=== PATIENT | male | born 1990 | race African-American/Black ===

== ENCOUNTER 2020-05-01 23:38 | Emergency (ER) | payer OTHER, SELFPAY ==
[2020-05-01 23:42] VITALS: BP 127/73; PULSE 63; RESP 18; TEMP 35.3; O2SAT 100
--- NOTE | 2020-05-01 23:53 | ED.MALEGU ---
HPI - Male Genitourinary General Chief complaint: Urogenital-Male Stated complaint: burning - std Time Seen by Provider: 05/01/20 23:52 Source: patient Mode of arrival: ambulatory Limitations: no limitations History of Present Illness HPI Narrative: Pt c/o burning upon urination and penile discharge, clear, started 2 days ago. Denies any abdominal pain, pelvic pain, nausea, vomiting, diarrhea, fever or chills. Patient states that he had a similar episode years ago when he was diagnosed with gonorrhea and chlamydia Related Data Allergies Allergy/AdvReac Type Severity Reaction Status Date / Time No Known Allergies Allergy Verified 05/01/20 23:44 Review of Systems Review of Systems: All systems reviewed & are unremarkable except as noted in HPI and below Constitutional: Constitutional: Denies body ache(s), Denies chills, Denies excessive sweating, Denies fatigue, Denies fever(s), Denies headache(s), Denies lethargy, Denies malaise, Denies weakness and Denies weight loss Eyes: Eyes: Denies blurry vision, Denies change in vision and Denies loss of vision ENT: Denies dizziness, Denies ear discharge, Denies headache(s), Denies lip swelling, Denies epistaxis, Denies nasal congestion, Denies neck pain, Denies throat swelling and Denies tongue swelling Cardiovascular: Cardiovascular: Denies chest pain, Denies chest pain at rest, Denies chest pain with activity, Denies diaphoresis, Denies rapid heart rate, Denies edema, Denies irregular heart rhythm, Denies lightheadedness, Denies palpitations, Denies dyspnea and Denies dyspnea on exertion Respiratory: Respiratory: Denies chest congestion, Denies cough, Denies hemoptysis, Denies dyspnea and Denies dyspnea on exertion Gastrointestinal: Gastrointestinal: Denies abdominal pain, Denies melena, Denies hematochezia, Denies diarrhea, Denies nausea, Denies vomiting and Denies hematemesis Musculoskeletal: Musculoskeletal: Denies abnormal gait, Denies deformity, Denies joint swelling, Denies limited range of motion, Denies neck pain and Denies numbness Neurologic: Denies Abnormal speech present, Denies abnormal gait, Denies confusion, Denies dizziness, Denies headache(s), Denies focal weakness, Denies loss of vision, Denies numbness, Denies Other visual disturbances, Denies Sensory deficit (Neuro) and Denies weakness Psychiatric: Psychiatric: Denies confusion, Denies depression, Denies auditory hallucinations, Denies homicidal ideation and Denies suicidal ideation Endocrine: Endocrine: Denies cold intolerance, Denies excessive sweating, Denies fatigue, Denies heat intolerance and Denies palpitations Hematologic/Lymphatic: Hematologic/Lymphatic: Denies easy bleeding and Denies easy bruising Allergic/Immunologic: Allergic/Immunologic: Denies lip swelling, Denies throat swelling and Denies tongue swelling PMFSH Social History Social History Gender identity (if verbalized by the patient): Male Sexual Orientation (if Verbalized by the Patient): Straight or Heterosexual Exam Const: General: cooperative, healthy appearing, comfortable, no acute distress, well developed, alert and awake; No confusion Orientation/consciousness: oriented to person, oriented to place, oriented to time, patient oriented x3 and No confusion Limitations: no limitations HENMT: Head: normal to inspection, normocephalic and atraumatic Ears: hearing grossly normal bilaterally General nose exam: Normal external nose present, Normal nares present and No nasal discharge present Face and sinus: normal facial exam Mouth: Yes Normal oral and palatal mucosa present and Yes lip normal Eyes: General: appearance normal, both eyes and all related structures Pupils: Equal, round and reactive pupils present EOM: EOMs intact bilaterally Neck: Neck: normal visual inspection, full ROM, no lymphadenopathy and no meningeal signs Chest: Chest palpation & inspection: normal inspection of the chest Resp: Effort & Inspection: normal re
[2020-05-02] MEDS: cefTRIAXone 1 GM VIAL 0.5 GM IM (00:50)
[2020-05-02] MEDS: LIDOCAINE HCL 1% LOCAL INJ 20 ML VIAL (00:50)
[2020-05-02 00:55] VITALS: BP 122/70; PULSE 69; RESP 18; O2SAT 99
== END 2020-05-02 01:07 | disposition home or self-care (01) ==
LOC: ANHED 05-02 00:09
PROVIDERS: Emergency Provider Emergency Medicine
DX: N34.2 Other urethritis (principal); Z20.2 Contact with and (suspected) exposure to infections with a predominantly sexual mode of transmission
CPT/HCPCS: 96372; 99283; J0696

== ENCOUNTER 2020-09-29 18:26 | Emergency (ER) | payer OTHER, SELFPAY ==
[2020-09-29 18:34] VITALS: BP 134/74; PULSE 72; RESP 16; TEMP 37.1; O2SAT 99
--- NOTE | 2020-09-29 18:34 | ED.MALEGU ---
HPI - Male Genitourinary General Chief complaint: Urogenital-Male Stated complaint: groin pains Time Seen by Provider: 09/29/20 18:34 Source: patient and RN notes reviewed Mode of arrival: ambulatory Limitations: no limitations History of Present Illness HPI Narrative: 30-year-old male presents to the [facility] with complaints of 3 bumps on the shaft of his penis by the tip. States has been there a couple of days. Denies any new creams or ointments lotions detergents condoms. Denies any penile discharge. No urinary symptoms, no burning, no urgency or no frequency. Related Data Allergies Allergy/AdvReac Type Severity Reaction Status Date / Time No Known Allergies Allergy Verified 09/29/20 18:45 Review of Systems Constitutional: Constitutional: Reports no additional constitutional complaints Cardiovascular: Cardiovascular: Reports no additional cardiovascular complaints Respiratory: Respiratory: Reports no additional respiratory complaints Genitourinary: Genitourinary: Reports as per HPI, Denies dysuria, Denies flank pain, Denies painful ejaculations, Denies penile discharge, Denies scrotal swelling, Denies testicular pain, Denies urinary frequency, Denies urinary hesitancy, Denies urinary incontinence and Denies urinary urgency Musculoskeletal: Musculoskeletal: Reports no additional musculoskeletal complaints Integumentary/Breasts: Comments: 3 small bumps to shaft of penis Neurologic: Reports system reviewed and no additional complaints, except as documented Psychiatric: Psychiatric: Reports no additional psychiatric complaints PMFSH Social History Social History Gender identity (if verbalized by the patient): Male Comments At the time of my signature, I reviewed and agree with the nursing past medical, surgical, social, and family history. There is no relevant family history pertinent to the patient complaint. Exam Const: General: cooperative, healthy appearing, comfortable, no acute distress, well developed and alert Nutritional Appearance: well nourished and overweight Orientation/consciousness: patient oriented x3 Limitations: no limitations HENMT: Head: normal to inspection Eyes: General: appearance normal, both eyes and all related structures Neck: Neck: normal visual inspection, full ROM, no lymphadenopathy and trachea midline Chest: Chest palpation & inspection: normal inspection of the chest Resp: Effort & Inspection: normal respiratory effort and able to speak in complete sentences Auscultation: clear to auscultation bilaterally Cardio: Rate: regular rate Rhythm: regular rhythm GI: Inspection: normal to inspection GI Palp: No abdominal tenderness and Yes Soft to palpation Rectal Exam: deferred : Male General Exam: Yes normal external exam, No erythema, No hernia and No inguinal lymphadenopathy Penis: Yes circumcised and Yes Genital lesions present (3 small bumps noted to the left distal aspect.) Scrotum: scrotum normal, no ecchymosis, not edematous and not erythematous Testes: Testes normal Other: Chaperoned by Tonia BURNETT Male genitals images: 1. 3 small raised bumps, not vesicular Back/Spine/Pelvis: Back: no CVA tenderness Skin: General skin exam: normal color and no rashes or lesions noted Neuro: General: patient oriented x3 Psych: Appearance: grossly normal and well kempt Mental Status: mental status grossly normal Speech and movement: Normal speech and movement present and Clear speech present Affect: normal affect Attitude: cooperative Thought process: Normal thought process present Thought content: Yes Normal thought content present Course Course Emergency Course: Discharge instructions reviewed with patient, as well as provided in writing per nursing staff. The instructions also include specific and strict return/GO TO THE ER as well as f/u information. All questions have been answered, and the patient deny
[2020-10-11 15:38] LABS: Herpes Simplex Type 1 DNA PCR Not Detected
[2020-10-11 15:40] LABS: Herpes Simplex Type 2 DNA PCR Detected
== END 2020-09-29 18:54 | disposition home or self-care (01) ==
PROVIDERS: Emergency Provider Nurse Practitioner; PCP Family Medicine
DX: N48.9 Disorder of penis, unspecified (principal)
CPT/HCPCS: 36415; 87255; 87529; 99213; G0463

== ENCOUNTER 2020-10-02 14:50 | Emergency (ER) | payer OTHER, SELFPAY ==
--- NOTE | ~2020-10-02 | US_ITS ---
EXAMINATION: US scrotum doppler DATE: 10/02/2020 17:15 INDICATION: Right scrotal pain. TECHNIQUE: Grayscale and Doppler ultrasound images of the testes were obtained. COMPARISON: Ultrasound 06/16/2009 FINDINGS: The right testis measures 4.2 x 2.0 x 2.3 cm. The left testis measures 3.9 x 1.9 x 2.5 cm. There is normal vascular flow to both testes. The right epididymis is normal with normal vascular ayan w. The left epididymis is normal with normal vascular flow. There is no varicocele or hydrocele. IMPRESSION: 1. Normal testes. Reviewed, dictated and finalized at location A. IMPRESSION: 1. Normal testes.
[2020-10-02 14:56] VITALS: BP 135/70; PULSE 55; RESP 16; TEMP 36.4; O2SAT 100
[2020-10-02 16:04] LABS: Basophils Percent Auto 0.5 % (0.2-1.2); Eosinophils Absolute Auto 0.1 K/mm3 (0-0.3); Eosinophils Percent Auto 1.8 % (0-4.4); Hemoglobin 17.2 g/dL (14.0-18.0); Immature Granulocyte Absolute 0.02 K/mm3 (0.00-0.031); Immature Granulocyte Percent A 0.3 % (0-0.5); Lymphocytes Absolute Auto 1.79 K/mm3 (0.9-3.2); Lymphocytes Percent Auto 29.4 % (18.3-44.2); Mean Corpuscular HGB Conc 33.1 g/dl (32-36); Mean Corpuscular Hemoglobin 29.7 pg (26-34); Mean Corpuscular Volume 89.8 fl (80-100); Monocytes Absolute Auto 0.4 K/mm3 (0.1-0.6); Monocytes Percent Auto 7.2 % (2.6-8.5); Neutrophils Absolute Auto 3.7 K/mm3 (1.3-6.7); Neutrophils Percent Auto 60.8 % (45.5-73.1); Platelet Count Result 331 k/mm3 (150-375); Red Blood Count 5.79 M/mm3 (4.6-6.20); Red Cell Distribution Width 13.6 % (11.5-14.5); White Blood Count 6.1 K/mm3 (4.5-10.0)
[2020-10-02 16:15] LABS: Anion Gap 11 mmol/L (8-16); Blood Urea Nitrogen 15 mg/dL (9-20); Calcium 9.7 mg/dL (8.4-10.2); Carbon Dioxide 30 mmol/L (22-30); Chloride 101 mmol/L (98-107); Estimated CRCL calculation 131 ml/min; Estimated Glomerular Filt Rate > 60; Glucose 95 mg/dL (75-110); Potassium 3.9 mmol/L (3.4-5.0); Sodium 142 mmol/L (137-145)
[2020-10-02 17:35] LABS: Add Urine Microscopic? YES; Appearance Urine Clear (Clear); Bacteria Urine Trace /hpf; Bilirubin Urine Negative (Negative); Blood Urine Negative (Negative); Color Urine Yellow (Yellow); Glucose Urine UA Negative (Negative); Ketones Urine Negative (Negative); Leukocyte Esterase Ur Negative LEU/UL (Negative); Mucus Urine Rare /lpf; Nitrate Urine Negative (Negative); Protein Urine Negative (Negative); RBC Urine 0-2 /hpf (0-2); Specific Grav Ur 1.028 (1.001-1.035); Squamous Epithelial Cell Urine Rare /hpf (Few); WBC Urine 0-3 /hpf
[2020-10-02] MEDS: cefTRIAXone 1 GM VIAL 0.5 GM IM (17:43)
[2020-10-02 17:46] VITALS: BP 142/84; PULSE 68; RESP 14; O2SAT 99
--- NOTE | 2020-10-02 17:51 | ED.GENADULT ---
HPI - General Adult General Chief complaint: Urogenital-Male Stated complaint: R Flank Pain,R Testicle Pain Time Seen by Provider: 10/02/20 17:05 Source: patient and RN notes reviewed Mode of arrival: ambulatory Limitations: no limitations History of Present Illness HPI narrative: Patient is a 30-year-old male who presents with mild discomfort of the right groin and testicle and some intermittent right lower back pain patient has long would like to be tested and treated for STDs. Patient denies similar occurrence in the past. Patient notes he had had two small spots on his penis which have healed. Denies dysuria hematuria swelling or other concerns has not taken anything for his symptoms Related Data Allergies Allergy/AdvReac Type Severity Reaction Status Date / Time No Known Allergies Allergy Verified 09/29/20 18:45 Review of Systems Review of Systems: All systems reviewed & are unremarkable except as noted in HPI and below PMFSH Social History Social History (Updated 10/02/20 @ 17:54 by Damian Tavera PA-C) Smoking status: Never smoker Gender identity (if verbalized by the patient): Male Exam Narrative: Exam Narrative: GENERAL: Well-appearing, well-nourished, and in no acute distress. HEAD: Normocephalic, atraumatic. EYES: PERRLA and EOMI. ENT: Nares clear, no rhinorrhea or epistaxis. Mucous membranes moist. CHEST: Clear to auscultation. No respiratory distress. No wheezes rales or rhonchi HEART: Regular rate and rhythm. No murmur heard. Normal peripheral pulses. ABDOMEN: Soft, nontender, nondistended MALE GENITOURINARY: Normal genitalia SKIN: Warm, dry, no rash. NEURO: No focal deficits. Alert and oriented x3. PSYCH: Normal mood and affect. Course Course Emergency Course: Patient in the room no distress will be tested and was given Rocephin in the ER will follow with primary care and has been given urology follow-up agreeing to follow-up as instructed ABCs and vital signs intact and stable Vital Signs Vital signs: Vital Signs Temperature 97.6 F 10/02/20 14:56 Pulse Rate 55 L 10/02/20 14:56 Respiratory Rate 16 10/02/20 14:56 Blood Pressure 135/70 10/02/20 14:56 Pulse Oximetry 100 10/02/20 14:56 Temperature 97.6 F 10/02/20 14:56 Pulse Rate 68 10/02/20 17:46 Respiratory Rate 14 10/02/20 17:46 Blood Pressure 142/84 H 10/02/20 17:46 Pulse Oximetry 99 10/02/20 17:46 Medical Decision Making MDM Narrative Medical decision making narrative: Patient was evaluated for testicular pain unremarkable ultrasound no high risk changes in the evaluation will be referred back to primary care has been tested and treated as requested and agrees to follow-up as instructed Vital Signs Vital Signs: Vital Signs Temperature 97.6 F 10/02/20 14:56 Pulse Rate 55 L 10/02/20 14:56 Respiratory Rate 16 10/02/20 14:56 Blood Pressure 135/70 10/02/20 14:56 Pulse Oximetry 100 10/02/20 14:56 Temperature 97.6 F 10/02/20 14:56 Pulse Rate 68 10/02/20 17:46 Respiratory Rate 14 10/02/20 17:46 Blood Pressure 142/84 H 10/02/20 17:46 Pulse Oximetry 99 10/02/20 17:46 Lab Data Result diagrams: 10/02/20 15:52 10/02/20 15:52 Labs: Lab Results 10/02/20 10/02/20 10/02/20 Range/Units 15:52 15:52 17:23 WBC 6.1 (4.5-10.0) K/mm3 RBC 5.79 (4.6-6.20) M/mm3 Hgb 17.2 (14.0-18.0) g/dL Hct 52.0 (42.0-52.0) % MCV 89.8 (80-100) fl MCH 29.7 (26-34) pg MCHC 33.1 (32-36) g/dl RDW 13.6 (11.5-14.5) % Plt Count 331 (150-375) k/mm3 MPV 9.0 (7.4-10.4) fl Immature Gran % (Auto) 0.3 (0-0.5) % Neut % (Auto) 60.8 (45.5-73.1) % Lymph % (Auto) 29.4 (18.3-44.2) % Fountain % (Auto) 7.2 (2.6-8.5) % Eos % (Auto) 1.8 (0-4.4) % Baso % (Auto) 0.5 (0.2-1.2) % Lymph # (Auto) 1.79 (0.9-3.2) K/mm3 Fountain # (Auto) 0.4 (0.1-0.6) K/mm3 Eos # (Auto) 0.1 (0-0.3) K/mm3 Baso # (Aut
--- NOTE | 2020-10-02 17:52 | PC.NURSE ---
Lidocaine used to mixed rocephin
== END 2020-10-02 18:04 | disposition home or self-care (01) ==
PROVIDERS: Emergency Medicine Emergency Medical Services; Emergency Provider Emergency Medicine; PCP Family Medicine
DX: N50.811 Right testicular pain (principal)
CPT/HCPCS: 36415; 76870; 80048; 81001; 85025; 87491; 87591; 93976; 96372; 99284; J0696

== ENCOUNTER 2021-09-05 13:40 | Emergency (ER) | payer OTHER, SELFPAY ==
--- NOTE | 2021-09-05 13:46 | ED.CHESTPAIN ---
HPI - Chest Pain General Chief Complaint: Unspecified Stated Complaint: cp Time Seen by Provider: 09/05/21 13:46 Source: patient Mode of arrival: ambulatory Limitations: no limitations History of Present Illness HPI narrative: Mr. Tavera is a 31-year-old male patient presenting to the clinic today with complaints of midsternal chest pain with sour taste that gets worse after eating. He reports that he feels as though he has acid reflux but also suffers from some chest tightness and difficulty getting air in and out. He denies any radiation of the pain. Reports the pain about a 2 or 3 out of 10 right now. Pain gets worse after eating. Symptoms have been ongoing for approximately 1 to 1.5 months. He has tried dieting without relief. Related Data Allergies Allergy/AdvReac Type Severity Reaction Status Date / Time No Known Allergies Allergy Verified 09/29/20 18:45 Review of Systems Review of Systems: Pertinent positives per HPI. Patient denies any fever, chills, rash, headache, visual changes, dizziness, cough, runny nose, sore throat, shortness of breath, chest pain, palpitations, nausea, vomiting, diarrhea, constipation, abdominal pain, or any urinary issues. [facility] Social History Social History Smoking status: Never smoker Gender identity (if verbalized by the patient): Male Sexual Orientation (if Verbalized by the Patient): Straight or Heterosexual Comments At the time of my signature, I reviewed and agree with the nursing past medical, surgical, social, and family history. There is no relevant family history pertinent to the patient complaint. Exam Narrative: General: Well-developed, obese, in no apparent distress Head: Normocephalic, atraumatic. Chest: Normal appearance, nontender to palpation, even rise and fall with respirations. Cardio: Regular rate and rhythm, s1 and s2 normal, no S3-S4, no murmur appreciated. Resp: Clear to auscultation bilaterally, no rhonchi, rales, wheezing or rubs. Extremities: No deformity, no edema, no cyanosis, capillary refill less than 2 seconds, peripheral pulses palpable and strong. Integumentary: New Site, warm, and dry, intact without lesion, no rashes. Course Course Emergency Course: Portions of this record may have been created with voice recognition software. Level of Care: Express Care Visit Vital Signs Vital signs: Vital signs reviewed MDM - Chest Pain MDM Narrative Medical decision making narrative: At the time of visit patient is resting comfortably on the exam table. Reports that he is having chest tightness, acid reflux, and sour taste in his mouth that gets worse after eating. This has been ongoing for 1 to 1.5 months. EKG shows sinus bradycardia with out ectopy. He denies any shortness of breath or radiation of pain. GI cocktail was given in the clinic and this relieved his pain. I suspect the patient has GERD and a prescription for Pepcid was sent to his pharmacy. He is to follow-up with a PCP for further evaluation as discussed and he voiced understanding. He agrees to discharge instructions and treatment plan. Differential Diagnosis Differential diagnosis: Likely pneumothorax, atypical chest pain, st elevation myocardial infarction, costochondritis, chest pain, biliary colic and other (GERD) ECG Data EKG #1: Attestation: I personally reviewed and interpreted this ECG as follows: ECG completion date: 09/05/21 ECG completion time: 13:58 Prior ECG tracings: not available for review Interpretation: EKG shows sinus bradycardia with a heart rate of 58 bpm without ectopy, NM interval is 170 ms, QRS duration 98 ms, QT/QTc 401/398 ms P?R?T axis is 16/-4/1, QTc be 395 ms, and QTC F is 397 ms Discharge Plan Discharge Clinical Impression: Gastroesophageal reflux disease Qualifiers: Esophagitis presence: esophagitis presence not specified Qualified Code(s): K21.9 - Gastro-esophage
[2021-09-05 13:47] VITALS: BP 134/77; PULSE 68; RESP 16; TEMP 37.4; O2SAT 98
[2021-09-05 13:53] VITALS: BP 134/77; PULSE 68; RESP 16; TEMP 37.4; O2SAT 98
--- NOTE | 2021-09-05 13:58 | ECG_ITS ---
Measurements Intervals Gilliam Rate: 58 P: 16 VT: 170 QRS: -4 QRSD: 98 T: 1 QT: 401 QTc: 395 Interpretive Statements SINUS BRADYCARDIA VOLTAGE CRITERIA FOR LVH MINIMAL Q WAVES- HIGH LATERAL LEADS BORDERLINE T WAVE ABNORMALITY- INFERIOR LEADS BORDERLINE ECG Electronically Signed On 09-05-2021 20:24:50 CDT by Huan Morillo D.O.
[2021-09-05] MEDS: LIDOCAINE HCL 2% VISC SOLN 15 ML UDC PO (14:03)
[2021-09-05] MEDS: MAG HYDROX/AL HYDROX/SIMETH 30 ML UDC PO (14:03)
== END 2021-09-05 14:20 | disposition home or self-care (01) ==
PROVIDERS: Emergency Provider Nurse Practitioner Family
DX: K21.9 Gastro-esophageal reflux disease without esophagitis (principal)
CPT/HCPCS: 93005; 99213; A9270; G0463

== ENCOUNTER 2021-11-07 00:58 | Emergency (ER) | payer OTHER, SELFPAY ==
[2021-11-07 01:02] VITALS: BP 136/79; PULSE 91; RESP 18; TEMP 37; O2SAT 99
[2021-11-07 03:51] VITALS: BP 161/88; PULSE 95; RESP 18; TEMP 37.2; O2SAT 99
[2021-11-07 03:54] VITALS: O2SAT 99
[2021-11-07] MEDS: LIDOCAINE HCL 2% VISC SOLN 15 ML UDC PO (04:44)
[2021-11-07] MEDS: SODIUM CHLORIDE 0.9% IV 1,000 ML 999 ML IV CONT (05:12)
--- NOTE | 2021-11-07 05:36 | ED.GENADULT ---
HPI - General Adult General Chief complaint: Upper Respiratory Infection Stated complaint: lightheaded, dizzy, throat hurting Time Seen by Provider: 11/07/21 03:31 History of Present Illness HPI narrative: Patient is a 31-year-old male who presents ER with sore throat. Ongoing for 3 days. Associate with sinus congestion and postnasal drip. No cough. Has a hoarse voice. He has taken home COVID test without a positive result. No difficulty breathing or swallowing. Reports he has been having chills and fatigue and been feeling warm but has no documented fevers. No known sick contacts. Patient does endorse lightheadedness with sitting to standing. Related Data Allergies Allergy/AdvReac Type Severity Reaction Status Date / Time No Known Allergies Allergy Verified 09/29/20 18:45 Review of Systems Review of Systems: All systems reviewed & are unremarkable except as noted in HPI and below Constitutional: Constitutional: Reports chills and Reports fatigue ENT: Denies dysphagia, Reports nasal congestion and Reports sore throat Cardiovascular: Cardiovascular: Denies chest pain, Denies rapid heart rate and Denies radiating jaw, neck or arm pain Respiratory: Respiratory: Denies cough and Denies dyspnea Gastrointestinal: Gastrointestinal: Denies abdominal pain, Denies nausea and Denies vomiting Musculoskeletal: Musculoskeletal: Reports myalgias, Denies arthralgias and Denies joint swelling PMFSH Past Medical History Medical History (Updated 11/07/21 @ 06:55 by Dameon Whitaker MD) Healthy adult male Surgical History Surgical History (Updated 11/07/21 @ 05:38 by Dameon Whitaker MD) No history of previous surgery Social History Social History Smoking status: Never smoker Gender identity (if verbalized by the patient): Male Sexual Orientation (if Verbalized by the Patient): Straight or Heterosexual Exam Narrative: GENERAL: Well-appearing, well-nourished, and in no acute distress. HEAD: Normocephalic, atraumatic. EYES: PERRLA and EOMI. ENT: Mucous membranes moist. Posterior oropharynx erythematous including tonsils and uvula. Uvula midline and nonedematous. Tonsils without exudate and not abutting the uvula. No trismus. Tolerating oral secretions without issue. NECK: Supple. CHEST: Clear to auscultation. No respiratory distress. HEART: Regular rate and rhythm. Normal peripheral pulses. EXTREMITIES: Normal range of motion. No edema. SKIN: Warm, dry, no rash. NEURO: Alert and oriented x3. PSYCH: Normal mood and affect. Course Course Emergency Course: Monotest and COVID-negative. Will treat for strep given sore throat and enlarged tonsils with erythema. The rapid strep cannot be formed and is being sent for culture due to a shortage of testing reagent. Vital Signs Vital signs: Vital Signs Temperature 98.6 F 11/07/21 01:02 Pulse Rate 91 11/07/21 01:02 Respiratory Rate 18 11/07/21 01:02 Blood Pressure 136/79 11/07/21 01:02 Pulse Oximetry 99 11/07/21 01:02 Oxygen Delivery Room Air 11/07/21 01:02 Temperature 98.9 F 11/07/21 03:51 Pulse Rate 95 11/07/21 03:51 Respiratory Rate 18 11/07/21 03:51 Blood Pressure 161/88 H 11/07/21 03:51 Pulse Oximetry 99 11/07/21 03:54 Oxygen Delivery Room Air 11/07/21 03:54 Medical Decision Making Vital Signs Vital Signs: Vital Signs Temperature 98.6 F 11/07/21 01:02 Pulse Rate 91 11/07/21 01:02 Respiratory Rate 18 11/07/21 01:02 Blood Pressure 136/79 11/07/21 01:02 Pulse Oximetry 99 11/07/21 01:02 Oxygen Delivery Room Air 11/07/21 01:02 Temperature 98.9 F 11/07/21 03:51 Pulse Rate 95 11/07/21 03:51 Respiratory Rate 18 11/07/21 03:51 Blood Pressure 161/88 H 11/07/21 03:51 Pulse Oximetry 99 11/07/21 03:54 Oxygen Delivery Room Air 11/07/21 03:54 Lab Data Labs: Lab Results 11/07/21 11/07/21 Range/Uni
[2021-11-07 05:47] LABS: Monoscreen Negative (Negative); Negative Monotest Control Negative (Negative); Positive Monotest Control Positive (Positive)
[2021-11-07 06:49] LABS: SARS-CoV-2 RNA PCR Negative
--- NOTE | 2021-11-07 06:53 | PC.NURSE ---
This patient is mad because test results take so long to come back. Patient states I just want to go home and figure out my results later.
[2021-11-07 07:09] VITALS: BP 120/82; PULSE 82; RESP 18; O2SAT 98
== END 2021-11-07 07:12 | disposition home or self-care (01) ==
PROVIDERS: Emergency Provider Emergency Medicine
DX: J03.90 Acute tonsillitis, unspecified (principal); Z20.822 Contact with and (suspected) exposure to COVID-19
CPT/HCPCS: 36415; 86308; 87081; 87147; 87880; 96360; 99283; C9803; J7030; U0003; U0005

== ENCOUNTER 2022-12-05 17:36 | Emergency (ER) | payer OTHER, SELFPAY ==
[2022-12-05 17:50] VITALS: BP 99/87; PULSE 68; RESP 16; TEMP 36.8; O2SAT 100
--- NOTE | 2022-12-05 18:14 | ED.LOWEXIN ---
HPI - Extremity Injury (Lower) General Chief Complaint: Extremity Injury, Lower Stated Complaint: right leg check Source: patient Mode of arrival: ambulatory Limitations: no limitations History of Present Illness HPI Narrative: 32 y/o male presented for 2 complaints. First he wants a wound check to abscess site on right upper thigh. States he was treated about 10 days ago initially with Bactrim. States he had no improvement, and while he was on vacation he was seen at 5 days ago, dx with cellulitis, had I&D and was prescribed cephalexin and another course of Bactrim. Packing removed 3 days ago. Has not removed the dressing to shower. Patient is awaiting culture result. Reports improvement in redness and swelling since the I&D. Also reports Possible STD exposure, states someone told him they have gonorrhea and chlamydia. Endorses occasional right testicular pain. Denies testicular redness or swelling, or lesions. Denies burning with urination or urethral discharge, stating he has had these symptoms in the past when diagnosed with gonorrhea. Pt is requesting treatment at this time. Related Data Home Medications Medication Instructions Recorded Confirmed acetaminophen 325 mg tablet mg 12/05/22 cephalexin 500 mg capsule mg 12/05/22 sulfamethoxazole 800 tablet 12/05/22 mg-trimethoprim 160 mg tablet Allergies Allergy/AdvReac Type Severity Reaction Status Date / Time No Known Allergies Allergy Verified 12/05/22 17:55 Review of Systems Review of Systems: CONSTITUTIONAL: Denies body aches, fever, chills, or sweats. EYES: Denies visual changes, redness, or discharge. ENT: Denies rhinorrhea, congestion CARDIOVASCULAR: Denies chest pain, palpitations, or edema. RESPIRATORY: Denies cough or dyspnea. GASTROINTESTINAL: Denies abdominal pain, nausea, vomiting, or diarrhea. : Reports occasional testicular pain denies dysuria, urethral discharge SKIN: Reports abscess to right thigh MUSCULOSKELETAL: Denies back pain, joint pain, or myalgia. NEUROLOGIC: Denies headache, numbness, tingling, or weakness. [facility] Past Medical History Medical History Healthy adult male Surgical History Surgical History No history of previous surgery Social History Social History Smoking status: Never smoker Gender identity (if verbalized by the patient): Male Sexual Orientation (if Verbalized by the Patient): Straight or Heterosexual Comments At time of signature, I have reviewed and agree with nursing past medical, surgical, social and family history unless otherwise noted. Please see nursing chart for further information. There is no relevant family history pertinent to the presenting complaint Exam Narrative: GENERAL: Well-appearing HEAD: Normocephalic, atraumatic. EYES: conjunctivae clear, and EOMI. ENT: Mucous membranes moist. Oropharynx without edema, erythema or lesions. NECK: Supple. No lymphadenopathy CHEST: Clear to auscultation. HEART: Regular rate and rhythm. SKIN: Warm, dry. Right anterior thigh with approximately 0.5 cm open circular wound <0.5cm deep, with surrounding induration of approx 2cm diameter, appears healing; no active drainage or fluctuance; marked area from previous exam indicates significant improvement in cellulitis. Nontender. : refused. NEURO: Alert and oriented x3. Course Course Emergency Course: Patient is aware of diagnosis, understands and agrees to treatment plan. Anticipatory guidance given. Patient agrees to follow-up as directed and is aware of reasons to seek care at the emergency department. Portions of this record may have been created with voice recognition software Level of Care: Express Care Visit Vital Signs Vital signs: Vital Signs Temperature 98.3 F 12/05/22 17:50 Pulse
[2022-12-05] MEDS: cefTRIAXone 500 MG VIAL IM (18:50)
--- NOTE | 2022-12-05 18:54 | PC.NURSE ---
did additional assessment, stated concerned also with possible std, has testicular discomfort and has had unprotected sex, denied discharge. 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 now is flattened, border now is more than [address] around from wound. bandaid in place by registry np.
== END 2022-12-05 19:10 | disposition home or self-care (01) ==
PROVIDERS: Emergency Provider Nurse Practitioner Family; PCP Family Medicine
DX: Z48.01 Encounter for change or removal of surgical wound dressing (principal); Z20.2 Contact with and (suspected) exposure to infections with a predominantly sexual mode of transmission
CPT/HCPCS: 87491; 87591; 87661; 96372; 99213; G0463; J0696